=== PATIENT | female | born 2005 | race Caucasian/White ===

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

== ENCOUNTER → 2025-03-17 | Outpatient (CLI) | payer MEDICAID ==
[~2025-03-17] MED LIST changes: -CYPR4TA PO; +CYPR4TAB36 PO; -DOXY-323 PO; +DOXY-441 PO
== END ==
LOC: M RAD 09:46
PROVIDERS: ATTEND Physician Assistant
DX: J45.30 Mild persistent asthma, uncomplicated (principal)